=== PATIENT | female | born 1935 | race Caucasian/White ===

== ENCOUNTER → 2017-06-30 08:06 | Outpatient (CLI) | payer MEDICARE, OTHER ==
--- NOTE | 2017-07-01 17:22 | EMG ---
PATIENT:ALON MANRIQUE DATE OF SERVICE: 06/30/17 MEDICAL RECORD: [id number] DATE OF : 39 LOCATION: [facility] ADMISSION DATE: REFERRING PHYSICIAN: GERRI GONZALES MD INTERPRETING PHYSICIAN: GERRI GONZALES MD DATE OF SERVICE: 06/30/2017 Referred by myself as an outpatient. ELECTROMYOGRAPHIC DATA: Electromyographic examination is limited to both lower extremities. In the right lower extremity, right peroneal motor stimulation elicits no reliable response. Right tibial motor stimulation elicits a compound motor action potential with a distal latency of 10.6 milliseconds and amplitude of only 80 microvolts. Proximal stimulation does not elicit a reliable response. The calculated conduction velocity from the distal segment is 8 meters per second. Antidromic right sural sensory stimulation elicits no reliable response. The right lower extremity H reflex recording at gastrocsoleus is absent. In the left lower extremity, left peroneal motor stimulation elicits no reliable response. Left tibial motor stimulation elicits no reliable response. Antidromic left sural sensory stimulation elicits no reliable response. The left lower extremity H reflex recording at gastrocsoleus is absent. Needle electrode examination is limited to both lower extremities as well. Muscles interrogated include the abductor hallucis, extensor digitorum brevis, abductor digiti quinti, tibialis anterior, medial gastrocnemius, vastus lateralis, semitendinosis and gluteus ivis. Insertional activity is markedly reduced in the intrinsic foot muscles bilaterally. Motor unit potential morphology and the pattern of motor unit potential firing and recruitment demonstrates absence of near field motor units in the intrinsic foot muscles bilaterally. The extensor hallucis longus also demonstrates absence of near field motor units bilaterally. More proximally, there is a severe decrease in the number of motor units firing at an increased rate consistent with decreased recruitment at the tibialis anterior and medial gastrocnemius bilaterally. The remaining more proximal muscles are normal. INTERPRETATION: Electromyographic examination of both lower extremities is indicative of a severe and diffused disorder of the lower motor neuron in both lower extremities, consistent with the diagnosis of a sensory motor peripheral polyneuropathy. There is evidence of chronic denervation of the intrinsic foot muscles and distal leg muscles bilaterally. There is no evidence of active or acute denervation. There is no electrical evidence of a superimposed lumbosacral radiculopathy or other lesion of the lower motor neuron in both lower extremities at this time. TRANSINT:[id number] Voice Confirmation ID: [id number] DOCUMENT ID: [id number] ELECTROMYGRAM/NERVE CONDUCTION [id number] ALON MANRIQUE DONALD P MD at 1722 CC: [id number] DICTATION DATE: 06/30/17 0955 [employer] KENNEL: 06/30/17 2321 DEP CLI 06/30/17 [id number] [place] [id number]
== END | disposition home or self-care (01) ==
LOC: D.CN 03-24 08:00
DX: G60.9 Hereditary and idiopathic neuropathy, unspecified (principal); E11.40 Type 2 diabetes mellitus with diabetic neuropathy, unspecified